=== PATIENT | male | born 1985 | race Caucasian/White ===

== ENCOUNTER 2021-06-18 11:13 | Emergency (ER) | payer BC ==
[~2021-06-18] VITALS: Ht 177.8 cm; Wt 74.8 kg
[2021-06-18] MEDS ORDERED: POLYSPORIN OINT15 GM T (12:28)
[2021-06-18] MEDS ORDERED: NAPROXEN250 MG PO (12:28)
[2021-06-18] MEDS ORDERED: TYLENOL325 M1 PO (12:28)
== END 2021-06-18 12:34 | disposition home or self-care (01) ==
LOC: ED 11:13
DX: S89.92XA Unspecified injury of left lower leg, initial encounter (principal); V89.2XXA Person injured in unspecified motor-vehicle accident, traffic, initial encounter; Y93.89 Activity, other specified; Y92.89 Other specified places as the place of occurrence of the external cause; Y99.8 Other external cause status